=== PATIENT | female | born 1975 | race Caucasian/White ===

== ENCOUNTER → 2016-05-01 | Outpatient (CLI) | payer BC ==
[~2016-05-01] MED LIST: ACET-1257 PO; ACET325T96 PO; AMOX875T PO; CHOL2000 PO; CHOLTAB3 PO; DEXL60CA4 PO; DIPH25CA65 PO; LEVO125T72 PO; LORA-741 PO; MISCCAP80 PO; MULT-506 PO; OMEP40CA41 PO; OXYC1TAB3 PO; PANT40TA PO; PLEXUS BIO CLEANSE PO; PLEXUS DRINK PO; POLY335025 PO; PROB1CAP6 PO; SYN100 PO; ZNTT/150 PO
--- NOTE | 2016-05-01 13:28 | Discharge Instructions ---
Discharge Instructions Procedure Procedure Date: May 01, 2016. Reason for visit: Bilateral Thyroid Nodule. Discharge Discharge Date: May 01, 2016. Discharge Diagnosis: s/p thyroid nodule fna Instructions Activity Recommendations: No limitations Return to School/Work: no limitations Recommended Home Diet: No Limitations Provider Instructions: ACTIVITY RECOMMENDATIONS: * Rest today. * Resume regular activity in one day. MEDICATIONS: * May take Tylenol or Ibuprofen as needed for pain. DIET: * Resume previous diet. SPECIAL CARE INSTRUCTIONS: Call your doctor if: * Temperature above 101 degrees F. * Pain not relieved by pain medicine ordered. * Increased drainage or redness from incision. * Notify your doctor with any questions or concerns. Call your doctor or go to the nearest Emergency Department if you experience: * Increased chest pain or shortness of breath. FOLLOW UP VISIT: Follow-up with Referring Physician as scheduled. Allergies Uncoded Allergies: GENERALANESTHET (Allergy, Unknown, UNKNOWN ANESTHESIA MED, 06/03/09) Reynaldo Gaspar Recommendations: Call your doctor if: * Temperature above 101 degrees * Pain not relieved by pain medicine ordered * There is increased drainage or redness from any incision * You have any unanswered questions or concerns. Your Doctors Instructions noted above were prepared by provider Carlos Prater. Patient Signature Section: Patient Instructions Signature Page Shanika Rosales Patient (or Guardian) Signature/Date: I have read and understand the instructions given to me by my caregivers. Caregiver/RN/Doctor Signature/Date: The above-named patient and/or guardian has received patient instructions on this date. + Original Patient Signature Page (only) stays with chart. Please make copy for patient.
--- NOTE | 2016-05-01 13:49 | DIAGNOSTIC IMAGING REPORT ---
ULTRASOUND GUIDED FINE NEEDLE ASPIRATION OF BILATERAL THYROID NODULES CLINICAL HISTORY: Thyroid nodules. COMPARISON STUDY: Thyroid ultrasound April 26, 2016. PROCEDURE: Sonography of the thyroid gland demonstrated the 2.9 cm mixed cystic and solid nodule within the lower pole of the right lobe and the 1.3 cm solid nodule within the upper pole of the left lobe. These 2 nodules were targeted for biopsy. The procedure, risks and benefits were discussed with the patient. The patient agreed to the procedure and informed written consent was obtained. The procedure was performed by Dr. Prater following a timeout. Skin of the neck was prepped and draped in sterile fashion and local anesthesia was achieved with 1% lidocaine. Under direct ultrasound guidance, 2 25-gauge fine needle aspirations of the left lobe nodule were performed. The samples were deemed preliminarily adequate by pathology. 2 passes within the right lobe nodule were then performed. The samples were deemed inadequate and a third pass was then performed. This third pass was deemed adequate. The patient tolerated the procedure well and no immediate complications were evident. IMPRESSION: Ultrasound guided fine needle aspiration of bilateral thyroid nodules. Electronically signed by: Carlos Prater M.D. 05/01/2016 1:47 PM
== END | disposition home or self-care (01) ==
LOC: C.ULTR 12:26
PROVIDERS: ATTEND Nurse Practitioner
DX: E04.1 Nontoxic single thyroid nodule (principal)

== ENCOUNTER 2016-05-09 05:52 | Observation (INO) | payer BC ==
[2016-05-07 08:33] VITALS: BMI 21.0
--- NOTE | 2016-05-07 09:03 | PAT Medication Instructions ---
Service Date May 07, 2016. Current Home Medication List Acetaminophen Tab (Tylenol), 650 MG PO PRN Cholecalciferol (Vitamin D3), 1 CAP PO NOON Dexlansoprazole (Dexilant), 60 MG PO DAILY Diphenhydramine Hcl (Benadryl Allergy), 1 CAP PO HS Lorazepam (Ativan), 0.5 MG PO TID PRN for PRN Multivitamin (Multivitamin), 1 TAB PO NOON Probiotic Product (Probiotic), 2 TAB PO HS Ranitidine (Zantac), 150 MG PO HS [Plexus Bio Cleanse], 2 TAB PO QAM [Plexus Drink], 8 OZ PO QAM Medication Instructions For Your Scheduled Surgery - Hold the following medications the morning of surgery: [Plexus Bio Cleanse], 2 TAB PO QAM Multivitamin (Multivitamin), 1 TAB PO NOON Cholecalciferol (Vitamin D3), 1 CAP PO NOON [Plexus Drink], 8 OZ PO QAM - Take the following medications the morning of surgery with a sip of water OTHERWISE NOTHING TO EAT OR DRINK AFTER MIDNIGHT: Acetaminophen Tab (Tylenol), 650 MG PO PRN (may take if needed up to 4 hours prior to surgery) Dexlansoprazole (Dexilant), 60 MG PO DAILY Lorazepam (Ativan), 0.5 MG PO TID PRN for PRN - Take the following medications as scheduled the night before surgery: Acetaminophen Tab (Tylenol), 650 MG PO PRN Lorazepam (Ativan), 0.5 MG PO TID PRN for PRN Diphenhydramine Hcl (Benadryl Allergy), 1 CAP PO HS Probiotic Product (Probiotic), 2 TAB PO HS Ranitidine (Zantac), 150 MG PO HS If you have any questions please call us at [phone] (Bhumi Mckeon PA-C ) or [phone] or [phone]
[2016-05-07 11:04] LABS: PREG INTERNAL NEGATIVE QC NEG CLEAR BACKGROUND; PREG INTERNAL POSITIVE QC POS CONTROL LINE
[2016-05-07 11:16] LABS: PARTIAL THROMBOPLASTIN RATIO 1.1; PROTHROMBIN TIME (PATIENT) 10.8 SECONDS (9.0-12.0)
[2016-05-07 11:39] LABS: THYROID STIMULATING HORMONE 1.22 uIu/ml (0.300-4.500)
[2016-05-09] VITALS (9 sets, daily range): BP systolic 101–119; BP diastolic 64–80; PULSE 70–84; TEMP 36.5–37; O2SAT 97–100; Ht 172.7 cm; Wt 63.5 kg
[~2016-05-09] VITALS: Ht 172.7 cm; Wt 63.5 kg
[~2016-05-09 05:52] MED LIST changes: -ACET-1257 PO; +ACETAMINOPHEN 1000 MG/100 ML IV IV ONE; -AMOX875T PO; -CHOLTAB3 PO; -LEVO125T72 PO; -OMEP40CA41 PO; -OXYC1TAB3 PO; -PANT40TA PO; -POLY335025 PO; -PROB1CAP6 PO; -SYN100 PO
[2016-05-09] MEDS ORDERED: CEFAZOLIN 2000 MG/60 ML D5W IV SCH (06:00)
[2016-05-09] MEDS ORDERED: LACTATED RINGER'S 1000ML 1,000 ML IV SCH (06:00)
[2016-05-09] MEDS ORDERED: GLYCOPYRROLATE INJ 0.2 MG/ML VIAL ONE (06:06)
[2016-05-09] MEDS ORDERED: PHENYLEPHRINE HCL INJ 10 MG/ML VIAL ONE (06:06)
[2016-05-09] MEDS ORDERED: SUCCINYLCHOLINE CHLORIDE 20 MG/ML 10 ML VIAL IV ONE (06:06)
[2016-05-09] MEDS ORDERED: DEXAMETHASONE SOD INJ 4 MG/ML VIAL ONE (06:06)
[2016-05-09] MEDS ORDERED: ONDANSETRON INJ 2 MG/ML 2 ML VIAL ONE (06:06)
[2016-05-09] MEDS ORDERED: ROCURONIUM BROMIDE 10 MG/ML 5 ML VIAL ONE (06:06)
[2016-05-09] MEDS ORDERED: NEOSTIGMINE METHYLSULFATE 5 MG/5 ML SYR ONE (06:06)
[2016-05-09] MEDS ORDERED: PROPOFOL IV EMULSION 10 MG/ML 20 ML VIAL IV ONE (06:06)
[2016-05-09] MEDS ORDERED: FENTANYL CITRATE INJ 50 MCG/1 ML 2 ML VIAL ONE ×2 (06:06→07:52)
[2016-05-09] MEDS ORDERED: EpHEDrine SULFATE INJ 50 MG/ML AMP ONE (06:06)
[2016-05-09] MEDS ORDERED: LIDOCAINE HCL 2% 2 ML VIAL (20MG/ML) ONE (06:06)
[2016-05-09] MEDS ORDERED: MIDAZOLAM HCL 1 MG/ML 2ML VIAL ONE (06:06)
--- NOTE | 2016-05-09 06:39 | History & Physical Bridge - [place] ---
H&P Re-Evaluation Bridge Note: I have examined the patient, reviewed the History & Physical and in the interval since the performance of the History & Physical I have noted the following changes of clinical significance: No changes noted
[2016-05-09] MEDS ORDERED: LIDOCAINE 1% W/EPI 1:100,000 INJ ONE (07:39)
[2016-05-09] MEDS ORDERED: FENTANYL CITRATE INJ 50 MCG/1 ML 2 ML VIAL IV PRN (08:00)
[2016-05-09] MEDS ORDERED: ONDANSETRON INJ 2 MG/ML 2 ML VIAL IV PRN ×2 (08:00→09:45)
[2016-05-09] MEDS ORDERED: EpHEDrine SULFATE INJ 50 MG/ML AMP IV PRN (08:00)
[2016-05-09] MEDS ORDERED: HYDROmorphone INJ 1 MG/ML SYR IV PRN (08:00)
[2016-05-09] MEDS ORDERED: ATROPINE SULFATE 0.1 MG/ML 5ML SYR IV PRN (08:00)
[2016-05-09] MEDS ORDERED: PROMETHAZINE HCL INJ 6.25 MG in SODIUM CHLORIDE 0.9% 50ML 50 ML IV PRN (08:00)
[2016-05-09] MEDS ORDERED: BACITRACIN OINT 15 GM TUBE EXT ONE (09:10)
[2016-05-09] MEDS ORDERED: THROMBIN 5,000 UNITS (RECOMBINANT) TOP ONE (09:10)
--- NOTE | 2016-05-09 09:28 | [facility] Operative Report ---
Operative Report Operative Date May 09, 2016. Pre-Operative Diagnosis 1. Papillary Thyroid Carcinoma 2. Neck Pain Post-Operative Diagnosis SAME ABOVE Procedure(s) Performed TOTAL THYROIDECTOMY Surgeon Dr. Ra Osborne Kier Operator Surgeon(s) Shabana Don PA-C Estimated Blood Loss 5ml Findings 1. ~2CM FIRM LEFT SUPERIOR POLE THYROID NODULE AND ~2.5CM SOFT RIGHT THYROID NODULE Specimens A: Total Thyroid. Double stitch bowen the Right Superior Pole. Single stitch will janny the Left Superior Pole. I attest to the content of the Intraoperative Record and any orders documented therein. Any exceptions are noted below.
--- NOTE | 2016-05-09 09:52 | OPERATIVE REPORT ---
DATE OF OPERATION: 05/09/2016 PREOPERATIVE DIAGNOSIS: Papillary thyroid carcinoma. POSTOPERATIVE DIAGNOSIS: Same. PROCEDURE: Total thyroidectomy. SURGEON: Dr. Osborne. TIN ASSORTER: Shabana Don. ESTIMATED BLOOD LOSS: 5 mL. FINDINGS: 1. Firm, approximately 2 cm left mid to superior pole thyroid nodule. 2. Softer, approximately 2.5 cm right thyroid nodule. SPECIMENS: Total thyroidectomy for permanent pathological assessment. DRAINS: None. COMPLICATIONS: None. INDICATIONS FOR THE PROCEDURE: The patient is a very pleasant 40-year-old female who is referred by her primary care physician for evaluation of a fine needle aspiration biopsy showing papillary thyroid carcinoma. Ultrasound showed a right greater than left, multinodular goiter and an FNA of the right nodule was benign, but the left nodule appeared to have findings suspicious for papillary thyroid carcinoma. The patient presents for the above-mentioned procedure on an inpatient elective basis. DETAILS OF PROCEDURE: After informed consent had been obtained from the patient, the patient was wheeled to the operating room and placed on the operating table in the supine position. Monitors were placed after induction of general endotracheal anesthesia with a size 6 nerve integrity monitored endotracheal tube. The patient's head and neck were gently extended and a marking pen was used to outline the planned 5 cm incision in the natural skin crease 2 fingerbreadths above the level of the clavicles. 3 mL of 1% lidocaine with 1:100,000 epinephrine was used to inject the skin and subcutaneous tissues overlying the planned incision site. The skin of the neck and chest were then prepped and draped in the usual sterile fashion. A #15 scalpel was then used to make the incision through the skin, subcutaneous tissue, and platysma. Subplatysmal flaps were raised superiorly to the level of the thyroid notch and inferiorly to the level of clavicles. The median rhaphe of the strap muscles was divided using Bovie electrocautery. The strap muscles were retracted laterally and the right thyroid lobe was first addressed. The middle thyroid vein, as well as superior and inferior thyroidal vascular pedicles were divided adjacent to the thyroid capsule using the Harmonic scalpel. Dissection was carried laterally to medially with care to identify and preserve the right recurrent laryngeal nerve, as well as superior and inferior parathyroid candidates. The right recurrent laryngeal nerve stimulated and was identified and preserved during the procedure. The left side was then addressed in a similar fashion. The thyroid gland was then from the trachea at Enrique's ligament using the Harmonic scalpel. Orienting sutures were placed on the total thyroidectomy specimen, which was sent off for permanent pathological assessment. Hemostasis was confirmed with a Valsalva maneuver. Small pieces of Surgicel followed by topical spray thrombin were placed in the bilateral tracheoesophageal grooves. The strap muscles were then reapproximated in the midline and using a simple running interlocked 3-0 Vicryl suture. The platysma was then closed with 4-0 Monocryl suture. The incision was closed with a simple running subcuticular 5-0 Monocryl suture. The incision was cleansed and dried. Dermabond was applied to the incision. This marked the end of the case. The patient tolerated the procedure well and there were no apparent complications. The patient was extubated and transferred to recovery room in stable condition. I attest to the content of the Intraoperative Record and any orders documented therein. Any exceptio ns are noted below.
[2016-05-09] MEDS ORDERED: LORAZEPAM 0.5 MG TAB PO PRN (10:00)
--- NOTE | 2016-05-09 10:50 | Anesthesiology Progress Note ---
Anesthesia Post Op Note Date & Time May 09, 2016 at 10:50 Vital Signs Pain Intensity: 4 Vital Signs Past 12 Hours Date Time Temp Pulse Resp B/P Pulse Ox O2 Delivery O2 Flow Rate FiO2 05/09/16 10:22 37.0 05/09/16 10:18 74 16 125/82 100 05/09/16 10:18 74 16 05/09/16 10:13 76 16 05/09/16 10:13 76 16 119/78 100 05/09/16 10:08 83 17 126/79 100 05/09/16 10:08 82 17 05/09/16 10:07 81 16 100 05/09/16 10:07 81 16 05/09/16 10:03 119/77 05/09/16 10:02 82 18 05/09/16 10:02 80 18 100 05/09/16 09:58 121/81 05/09/16 09:57 92 16 100 05/09/16 09:57 94 16 05/09/16 09:53 118/78 05/09/16 09:52 73 24 100 05/09/16 09:52 74 24 05/09/16 09:51 72 16 05/09/16 09:51 72 16 100 05/09/16 09:48 123/81 05/09/16 09:46 82 16 100 05/09/16 09:46 82 16 05/09/16 09:43 122/81 05/09/16 09:41 78 12 05/09/16 09:41 79 12 100 05/09/16 09:38 113/79 05/09/16 09:36 36.7 93 12 130/77 100 Mask 10 05/09/16 09:36 78 15 100 05/09/16 09:36 78 15 05/09/16 06:19 36.8 78 18 110/75 100 Room Air Notes Mental Status: alert / awake / arousable, participated in evaluation Pt Amnestic to Procedure: Yes Nausea / Vomiting: adequately controlled Pain: adequately controlled Airway Patency, RR, SpO2: stable & adequate BP & HR: stable & adequate Hydration State: stable & adequate Anesthetic Complications: no major complications apparent
[2016-05-09] MEDS: LACTATED RINGER'S 1000ML 1,000 ML IV SCH ×2 (11:40→20:39)
[2016-05-09] MEDS: CHOLECALCIFEROL 1000 INTER.UNIT TAB PO SCH (12:00)
[2016-05-09] MEDS: MULTIVITAMIN TAB PO SCH (12:00)
[2016-05-09] MEDS: PANTOprazole SOD 40 MG TAB PO SCH (12:00)
[2016-05-09] MEDS ORDERED: IV FLUIDS COMPLETED PRN (12:00)
[2016-05-09] MEDS: HYDROCODONE/ACETAMOPHEN 5/325MG TAB PO PRN ×3 (12:23→21:09)
[2016-05-09 15:35] LABS: CALCIUM 8.6 mg/dl (8.5-10.1); PHOSPHORUS 2.6 mg/dl (2.5-4.9)
[2016-05-09] MEDS ORDERED: RANITIDINE HCL 150 MG TAB PO SCH (21:00)
[2016-05-09 21:31] LABS: CALCIUM 8.5 mg/dl (8.5-10.1); PHOSPHORUS 2.5 mg/dl (2.5-4.9)
[2016-05-10 03:09] VITALS: BP 96/61; PULSE 80; TEMP 36.8; O2SAT 99
[2016-05-10 03:21] LABS: CALCIUM 7.7 mg/dl (8.5-10.1)
[2016-05-10 03:27] LABS: MAGNESIUM 1.9 mg/dl (1.8-2.4)
[2016-05-10] MEDS ORDERED: CALCIUM GLUCONATE 10% 1,000 MG in SODIUM CHLORIDE 0.9% 50ML 50 ML IV STA (04:20)
[2016-05-10] MEDS ORDERED: NURSING VERBAL MED ORDER ONE (05:45)
[2016-05-10] MEDS ORDERED: LEVOTHYROXINE 100 MCG TAB PO SCH (06:00)
[2016-05-10 06:52] VITALS: BP 106/66; PULSE 73; TEMP 36.9; O2SAT 98
[2016-05-10 07:38] VITALS: O2SAT 100
--- NOTE | 2016-05-10 07:42 | Anesthesiology Progress Note ---
Anesthesia Post Op Note Date & Time May 10, 2016 at 07:41 Vital Signs Pain Intensity: 4.0 Vital Signs Past 12 Hours Date Time Temp Pulse Resp B/P Pulse Ox O2 Delivery O2 Flow Rate FiO2 05/10/16 07:38 100 Room Air 05/10/16 06:52 36.9 73 18 106/66 98 Room Air 05/10/16 03:09 36.8 80 18 96/61 99 Room Air 05/09/16 23:10 Room Air 05/09/16 22:57 36.9 82 16 101/64 97 Room Air Notes Mental Status: alert / awake / arousable, participated in evaluation Pt Amnestic to Procedure: Yes Nausea / Vomiting: adequately controlled Pain: adequately controlled Airway Patency, RR, SpO2: stable & adequate BP & HR: stable & adequate Hydration State: stable & adequate Anesthetic Complications: no major complications apparent
[2016-05-10] MEDS: PANTOprazole SOD 40 MG TAB PO SCH (08:34)
[2016-05-10] MEDS: CHOLECALCIFEROL 1000 INTER.UNIT TAB PO SCH (08:34)
[2016-05-10] MEDS: MULTIVITAMIN TAB PO SCH (08:34)
[2016-05-10] MEDS: HYDROCODONE/ACETAMOPHEN 5/325MG TAB PO PRN (08:35)
[2016-05-10] MEDS ORDERED: CALCIUM 600MG + VIT D 400 IU TAB PO SCH (09:00)
[2016-05-10 09:47] LABS: PHOSPHORUS 3.9 mg/dl (2.5-4.9)
--- NOTE | 2016-05-10 09:50 | Discharge Instructions ---
Discharge Instructions Admission Reason for Admission: Papillary Thyroid Carcinoma Discharge Discharge Diagnosis / Problem: SAME AND POSTOPERATIVE HYPOPARATHYROIDISM Discharge Goals Goal(s): Improve function Activity Recommendations Activity Limitations: as noted below 1. NO STRENUOUS ACTIVITY FOR 2WEEKS 2. KEEP INCISION DRY FOR 1 WEEK 3. NO DRIVING WHILE ON NORCO . Current Hospital Diet Patient's current hospital diet: Regular Diet, Gluten Free Diet, Low Lactose Diet Discharge Diet Recommended Diet: Regular Diet Procedures Procedures Performed: Bilateral Total Thyroidectomy Pending Studies Studies pending at discharge: no Medical Emergencies . Who to Call and When: Medical Emergencies: If at any time you feel your situation is an emergency, please call 911 immediately. . Non-Emergent Contact Non-Emergency issues call your: Surgeon . . "Provider Documentation" section prepared by Ra Osborne. VTE Core Measure Inpt VTE Proph given/why not?: SCD's
[2016-05-10 09:59] VITALS: BP 106/66; PULSE 73; TEMP 36.9; O2SAT 100
--- NOTE | 2016-05-10 10:05 | DISCHARGE SUMMARY ---
DATE OF DISCHARGE: 05/10/2016. HOSPITAL COURSE: The patient is a 40-year-old female with fine needle aspiration biopsy of a left thyroid nodule highly suspicious for papillary thyroid carcinoma. She underwent total thyroidectomy on 05/09/2016 and initially her postoperative calciums were within normal limits. However on 05/10/2016 her calcium dropped to 7.7 although she was asymptomatic. She was given 1 gram of IV calcium as well as oral calcium supplementation. Her calcium did increase to 8.0 and she still is asymptomatic. Her phosphorus plateaued at 3.9. she was discharged to home in satisfactory condition with the addition of Synthroid 100 mcg daily as well as a Os-Nain D taper consisting of 2 pills 4 times a day for 1 week, followed by 2 pills 3 times daily for 1 week, followed by 2 pills twice for 1 week, followed by 1 pill daily for 1 week. She has a postoperative appointment next Saturday and at that time we will order a calcium level. She is to call our office if she develops any numbness or tingling around her lips, fingers, or toes or develops muscle spasms or cramps.
[2016-09-03] MEDS ORDERED: OMEP40CA41 PO (13:17)
[2016-09-03] MEDS ORDERED: SYN100 PO (13:17)
== END 2016-05-10 10:51 | disposition home or self-care (01) ==
LOC: ENRESERVTM → ENRESERVDT → C.ACU 05:52 → C.3E 09:53
DX: C73 Malignant neoplasm of thyroid gland (principal); M54.2 Cervicalgia; K21.9 Gastro-esophageal reflux disease without esophagitis; E55.9 Vitamin D deficiency, unspecified; Z79.899 Other long term (current) drug therapy; Z83.49 Family history of other endocrine, nutritional and metabolic diseases; Z83.79 Family history of other diseases of the digestive system; Z82.49 Family history of ischemic heart disease and other diseases of the circulatory system; Z80.3 Family history of malignant neoplasm of breast; Z80.0 Family history of malignant neoplasm of digestive organs

== ENCOUNTER → 2016-05-15 | Outpatient (CLI) | payer BC ==
[~2016-05-15] MED LIST changes: -ACETAMINOPHEN 1000 MG/100 ML IV IV ONE; +OMEP40CA41 PO; +SYN100 PO
== END | disposition home or self-care (01) ==
LOC: C.LABBFT 09:12
PROVIDERS: ATTEND Surgery
DX: C73 Malignant neoplasm of thyroid gland (principal)

== ENCOUNTER → 2016-06-06 | Outpatient (CLI) | payer BC ==
[2016-06-06 12:40] LABS: THYROID STIMULATING HORMONE 0.243 uIu/ml (0.300-4.500)
== END | disposition home or self-care (01) ==
LOC: C.LAB 11:18
PROVIDERS: ATTEND Internal Medicine Endocrinology, Diabetes & Metabolism
DX: C73 Malignant neoplasm of thyroid gland (principal)

== ENCOUNTER → 2016-07-26 | Outpatient (CLI) | payer BC ==
[~2016-07-26] MED LIST changes: +LEVO125T72 PO; +PANT40TA PO
== END | disposition home or self-care (01) ==
LOC: C.LAB1850 15:18
PROVIDERS: ATTEND Obstetrics & Gynecology
DX: Z71.1 Person with feared health complaint in whom no diagnosis is made (principal)

== ENCOUNTER → 2016-07-26 | Outpatient (CLI) | payer BC ==
[2016-07-30 14:52] LABS: CHLAMYDIA TRACH RNA*** NOT DETECTED (NOT DETECTED); GC (NEIS GONORRHOEAE)RNA** NOT DETECTED (NOT DETECTED)
== END | disposition home or self-care (01) ==
LOC: C.LABSPEC 16:29
PROVIDERS: ATTEND Obstetrics & Gynecology
DX: Z71.1 Person with feared health complaint in whom no diagnosis is made (principal)

== ENCOUNTER → 2016-07-26 | Outpatient (CLI) | payer BC | END | disposition home or self-care (01) | LOC: C.PAPS 08:32 | PROVIDERS: ATTEND Obstetrics & Gynecology | DX: Z01.419 Encounter for gynecological examination (general) (routine) without abnormal findings (principal) ==

== ENCOUNTER → 2016-08-13 | Outpatient (CLI) | payer BC ==
[2016-08-14 03:39] LABS: THYROGLOBULIN <0.1 NG/ML (2.8-40.9)
== END | disposition home or self-care (01) ==
LOC: C.LAB1850 08:38
PROVIDERS: ATTEND Internal Medicine Endocrinology, Diabetes & Metabolism
DX: C73 Malignant neoplasm of thyroid gland (principal)

== ENCOUNTER → 2016-09-03 | Outpatient (CLI) | payer BC ==
[2016-09-03 12:18] LABS: HEMATOCRIT 36.6 % (37-47); MEAN CELL VOLUME 95.1 fL (80-100); MEAN CORPUSCULAR HEMOGLOBIN 31.9 pg (25-34); MEAN CORPUSCULAR HGB CONC 33.6 g/dl (32-36); MEAN PLATELET VOLUME 10.4 fL (7.4-10.4); PLATELET COUNT 179 K/uL (130-400); RED BLOOD COUNT 3.85 M/uL (4.2-5.4); WHITE BLOOD COUNT 5.14 K/uL (4.8-10.8)
[2016-09-03 13:05] LABS: FERRITIN 44.8 ng/ml (8.0-388.0); MAGNESIUM 2.2 mg/dl (1.8-2.4); THYROID STIMULATING HORMONE 0.478 uIu/ml (0.300-4.500)
--- NOTE | 2016-09-07 12:17 | CODING QUERY MEDICAL NECESSITY ---
CQSUPPORTING DIAGNOSIS NEEDED A supporting diagnosis is required for the test/procedure performed on this patient in order for us to be reimbursed by the patient's insurance. Please provide a supporting diagnosis for the following test/procedure listed below next to the test name along with your signature. *If there is no additional diagnosis for this patient that would support the following test/procedure please document that below next to the test/procedure. Test(s)/Procedure(s) that require a supporting diagnosis: DOS 09/03/16 VITAMIN D TEST Provider Signature: Date: Thank you Avril Trinh Health Information Management Once completed, please kindly fax back to [phone] For questions please call [phone]
== END | disposition home or self-care (01) ==
LOC: C.LAB1850 10:46
PROVIDERS: ATTEND Internal Medicine Endocrinology, Diabetes & Metabolism
DX: C73 Malignant neoplasm of thyroid gland (principal); K21.9 Gastro-esophageal reflux disease without esophagitis; R19.7 Diarrhea, unspecified; R25.2 Cramp and spasm; E55.9 Vitamin D deficiency, unspecified

== ENCOUNTER → 2016-09-12 | Day surgery (SDC) | payer BC, OTHER ==
[2016-09-03 13:17] VITALS: Ht 170.2 cm; Wt 63.6 kg
[~2016-09-12] VITALS: Ht 170.2 cm; Wt 63.6 kg
[~2016-09-12] MED LIST changes: -DEXL60CA4 PO; +LIDOCAINE HCL 2% 2 ML VIAL (20MG/ML) ONE; +PROPOFOL IV EMULSION 10 MG/ML 20 ML VIAL IV ONE
[2016-09-12 13:03] VITALS: TEMP 36.9
--- NOTE | 2016-09-12 13:31 | Endo History and Physical ---
History & Physical Date of Service: September 12, 2016. Chief Complaint: History of polyps Referring Physician: Dr. Bernard Garvey History of Present Illness 41 yo CF who presents for colonoscopy secondary to history of colon polyps. Past Surgical History Hx Cardiac Surgery: No Hx Internal Defibrillator: No Hx Pacemaker: No Hx Abdominal Surgery: Yes (LAPAROSCOPY) Hx of Implantable Prosthesis: No Hx Post-Op Nausea and Vomiting: No Hx Cancer Surgery: Yes (TOTAL THYROIDECTOMY) Hx Thoracic Surgery: No Hx Orthopedic: No Hx Urinary Tract Surgery: No Family History Colon CA, Polyp Social History Smoking Status: Never Smoker Hx Substance Use: No Hx Alcohol Use: Yes (OCCASIONALLY) Allergies Coded Allergies: Gluten (Verified Allergy, Unknown, INTOLERANCE TO WHEAT, 09/03/16) Milk (Verified Allergy, Unknown, COWS MILK-GI UPSET, 09/03/16) NO KNOWN DRUG ALLERGIES (Verified Allergy, Unknown, ., 09/03/16) Current Medications Reported Home Medications Medications Dose Route/Sig Max Daily Dose Days Date Category Dose Instructions Prilosec (Omeprazole) 40 Mg Cap 40 Mg PO BID 09/03/16 Reported Synthroid (Levothyroxine Sodium) 100 Mcg Tab 1 Tab PO QAM 09/03/16 Reported Tylenol (Acetaminophen) 325 Mg Tab 650 Mg PO PRN 05/07/16 Reported Ativan (Lorazepam) 0.5 Mg Tab 0.5 Mg PO TID PRN 05/07/16 Reported Vitamin D3 (Cholecalciferol) 2,000 Unit Cap 1 Cap PO NOON 90 05/07/16 Reported [Plexus Bio Cleanse] 2 Tab PO QAM 05/07/16 Reported [Plexus Drink] 8 Oz PO QAM 05/07/16 Reported VITAMIN SUPPLEMENT DRINK Probiotic (Probiotic Product) 1 Cap Cap 2 Tab PO HS 05/07/16 Reported Benadryl Allergy (Diphenhydramine Hcl) 25 Mg Cap 1 Cap PO HS 30 05/07/16 Reported Zantac (Ranitidine HCl) 150 Mg Tab 150 Mg PO HS 09/10/13 Reported Multivitamin (Multivitamins) Tab 1 Tab PO NOON 08/19/09 Reported Vital Signs Weight (Kilograms): 63.64 Height (Feet): 5 Height (Inches): 7 Date Time Temp Pulse Resp B/P Pulse Ox O2 Delivery O2 Flow Rate FiO2 09/12/16 13:03 36.9 77 16 119/72 100 Room Air Physical Exam General Appearance: WD/WN, no apparent distress Respiratory/Chest: Auscultation: breath sounds normal Cardiovascular: Heart Auscultation: RRR Abdomen: Bowel Sounds: normal Inspection & Palpation: soft, non-distended, no tenderness, guarding & rebound Assessment and Plan Assessment: 41 yo CF who presents for colonoscopy secondary to history of colon polyps. Plan: Proceed with colonoscopy.
--- NOTE | 2016-09-12 14:00 | Discharge Instructions ---
Endoscopy Patient Instructions Date / Procedure(s) Performed September 12, 2016. Colonoscopy Allergy Information Coded Allergies: Gluten (Verified Allergy, Unknown, INTOLERANCE TO WHEAT, 09/03/16) Milk (Verified Allergy, Unknown, COWS MILK-GI UPSET, 09/03/16) NO KNOWN DRUG ALLERGIES (Verified Allergy, Unknown, ., 09/03/16) Discharge Date / Findings September 12, 2016. Internal hemorrhoids Medication Instructions OK to resume all medications today as prescribed Reported Home Medications Medications Dose Route/Sig Max Daily Dose Days Date Category Dose Instructions Prilosec (Omeprazole) 40 Mg Cap 40 Mg PO BID 09/03/16 Reported Synthroid (Levothyroxine Sodium) 100 Mcg Tab 1 Tab PO QAM 09/03/16 Reported Tylenol (Acetaminophen) 325 Mg Tab 650 Mg PO PRN 05/07/16 Reported Ativan (Lorazepam) 0.5 Mg Tab 0.5 Mg PO TID PRN 05/07/16 Reported Vitamin D3 (Cholecalciferol) 2,000 Unit Cap 1 Cap PO NOON 90 05/07/16 Reported [Plexus Bio Cleanse] 2 Tab PO QAM 05/07/16 Reported [Plexus Drink] 8 Oz PO QAM 05/07/16 Reported VITAMIN SUPPLEMENT DRINK Probiotic (Probiotic Product) 1 Cap Cap 2 Tab PO HS 05/07/16 Reported Benadryl Allergy (Diphenhydramine Hcl) 25 Mg Cap 1 Cap PO HS 30 05/07/16 Reported Zantac (Ranitidine HCl) 150 Mg Tab 150 Mg PO HS 09/10/13 Reported Multivitamin (Multivitamins) Tab 1 Tab PO NOON 08/19/09 Reported Provider Instructions Activity Restrictions - No exercising or heavy lifting for 24 hours. - Do not drink alcohol the day of the procedure. - Do not drive a car or operate machinery until the day after the procedure. - Do not make any important decisions or sign important papers in 24 hours after the procedure. Following Day: - Return to full activity which may include returning to work/school. Diet Start your diet with liquids and light foods (jello, soup, juice, toast). Then eat your usual diet if not nauseated. Treatment For Common After Affects For mild abdominal pain, bloating, or excessive gas: - Rest - Eat lightly - Lie on right side Follow-Up Information Follow-up with Dr. Bernard Garvey as scheduled Anesthesia Information What You Should Know You have had a procedure that required some medicine to reduce anxiety and discomfort. This treatment is called moderate sedation. After receiving the treatment, you may be sleepy, but you will be able to breathe on your own. The effects of the treatment may last for several hours. Follow these instructions along with Activity/Diet recommendations noted above: * Do NOT do anything where dizziness or clumsiness would be dangerous. * Rest quietly at home today, then you can be up and about tomorrow. * Have a responsible person stay with you the rest of today. * You may have had an I.V. today. If so, you may take the dressing off later today. Recommendations Call your doctor if: * Trouble breathing * Continuous vomiting for more than 24 hours * Temperature above 101 degrees * Severe abdominal pain or bloating * Pain not relieved by pain medicine ordered * There is increased drainage or redness from any incision * A large amount of rectal bleeding greater than 2-3 tablespoons. (If you had a polyp/s removed or have hemorrhoids, a small amount of blood - from the rectum is to be expected.) * You have any unanswered questions or concerns. IN THE EVENT OF A SERIOUS EMERGENCY, GO TO THE NEAREST EMERGENCY ROOM Your discharge instructions were prepared by provider Oscar Castro. Patient Instructions Signature Page Shanika Rosales Patient (or Guardian) Signature/Date: I have read and understand the instructions given to me by my caregivers. Caregiver/RN/Doctor Signature/Date: The above-named patient and/or guardian has received patient instructions on this date. + Original Patient Signature Page (only) stays with chart. Please make copy for patient.
--- NOTE | 2016-09-12 14:02 | GI REPORT ---
Procedure Date: 09/12/2016 1:42 PM Procedure: Colonoscopy Indications: High risk colon cancer surveillance: Personal history of colonic polyps Medicines: Monitored Anesthesia Care Complications: No immediate complications. Estimated Blood Loss: Estimated blood loss: none. Procedure: Pre-Anesthesia Assessment: - Prior to the procedure, a History and Physical was performed, and patient medications and allergies were reviewed. The patient's tolerance of previous anesthesia was also reviewed. The risks and benefits of the procedure and the sedation options and risks were discussed with the patient. All questions were answered, and informed consent was obtained. Prior Anticoagulants: The patient has taken no previous anticoagulant or antiplatelet agents. ASA Grade Assessment: II - A patient with mild systemic disease. After reviewing the risks and benefits, the patient was deemed in satisfactory condition to undergo the procedure. After I obtained informed consent, the scope was passed under direct vision. Throughout the procedure, the patient's blood pressure, pulse, and oxygen saturations were monitored continuously. The Scope was introduced through the anus and advanced to the terminal ileum. The colonoscopy was performed without difficulty. The patient tolerated the procedure well. The quality of the bowel preparation was good. The terminal ileum, ileocecal valve, appendiceal orifice, and rectum were photographed. Findings: Non-bleeding internal hemorrhoids were found during retroflexion. The hemorrhoids were small. The exam was otherwise without abnormality. Impression: - Non-bleeding internal hemorrhoids. - The examination was otherwise normal. - No specimens collected. Recommendation: - Resume previous diet. - Continue present medications. - Repeat colonoscopy in 5 years for surveillance. - Return to primary care physician as previously scheduled. Oscar Castro, 09/12/2016 2:02:35 PM This report has been signed electronically. Note Initiated On: 09/12/2016 1:42 PM I attest to the content of the Intraoperative Record and orders documented therein, exceptions below
--- NOTE | 2016-09-12 14:16 | Anesthesiology Progress Note ---
Anesthesia Post Op Note Date & Time September 12, 2016 at 14:16 Vital Signs Pain Intensity: 3 Vital Signs Past 12 Hours Date Time Temp Pulse Resp B/P Pulse Ox O2 Delivery O2 Flow Rate FiO2 09/12/16 14:01 80 16 96/60 99 Room Air 09/12/16 13:03 36.9 77 16 119/72 100 Room Air Notes Mental Status: alert / awake / arousable, participated in evaluation Pt Amnestic to Procedure: Yes Nausea / Vomiting: adequately controlled Pain: adequately controlled Airway Patency, RR, SpO2: stable & adequate BP & HR: stable & adequate Hydration State: stable & adequate Anesthetic Complications: no major complications apparent
[2016-09-12 14:31] VITALS: BP 102/72; PULSE 68; O2SAT 100
== END | disposition home or self-care (01) ==
LOC: C.GI 12:28
PROVIDERS: ATTEND Internal Medicine
DX: Z12.11 Encounter for screening for malignant neoplasm of colon (principal); Z86.010 Personal history of colon polyps; K64.8 Other hemorrhoids; E89.0 Postprocedural hypothyroidism; Z83.71 Family history of colonic polyps; K21.9 Gastro-esophageal reflux disease without esophagitis

== ENCOUNTER → 2016-10-03 | Outpatient (CLI) | payer BC ==
[~2016-10-03] MED LIST changes: -LIDOCAINE HCL 2% 2 ML VIAL (20MG/ML) ONE; -PROPOFOL IV EMULSION 10 MG/ML 20 ML VIAL IV ONE
[2016-10-03 17:48] LABS: THYROID STIMULATING HORMONE 0.832 uIu/ml (0.300-4.500)
== END | disposition home or self-care (01) ==
LOC: C.LABBFT 11:34
PROVIDERS: ATTEND Internal Medicine Endocrinology, Diabetes & Metabolism
DX: C73 Malignant neoplasm of thyroid gland (principal)

== ENCOUNTER → 2016-10-12 | Outpatient (CLI) | payer BC ==
--- NOTE | 2016-10-12 16:38 | MAMMOGRAPHY REPORT ---
BILATERAL DIGITAL SCREENING MAMMOGRAM TOMOSYNTHESIS WITH CAD: 10/12/2016 CLINICAL HISTORY: Routine screening. Patient has no complaints. TECHNIQUE: Breast tomosynthesis in addition to standard 2D mammography was performed. Current study was also evaluated with a Computer Aided Detection (CAD) system. COMPARISON: Comparison is made to exams dated: 08/23/2015 mammogram and 08/18/2014 mammogram - [facility]. BREAST COMPOSITION: The tissue of both breasts is extremely dense, which lowers the sensitivity of m ammography. FINDINGS: No suspicious masses, calcifications, or areas of architectural distortion are noted in ei ther breast. There has been no significant interval change compared to prior exams. IMPRESSION: ACR BI-RADS CATEGORY 1: NEGATIVE There is no mammographic evidence of malignancy. A 1 year screening mammogram is recommended. The pa tient will receive written notification of the results. Approximately 10% of breast cancers are not detected with mammography. A negative mammographic report should not delay biopsy if a clinically suggestive mass is present. Bren Seth M.D. ah/:10/12/2016 15:57:41 Nursing Program Coordinator: Beena BURGESS(Raul)(Mary)(BD), [facility] letter sent: Normal 1/2 BI-RADS Code: ACR BI-RADS Category 1: Negative
== END | disposition home or self-care (01) ==
LOC: C.MAMM 15:21
PROVIDERS: ATTEND Obstetrics & Gynecology
DX: Z12.31 Encounter for screening mammogram for malignant neoplasm of breast (principal)

== ENCOUNTER → 2016-11-16 | Outpatient (CLI) | payer BC ==
[~2016-11-16] MED LIST changes: -LEVO125T72 PO; -PANT40TA PO
[2016-11-16 18:48] LABS: THYROID STIMULATING HORMONE 0.208 uIu/ml (0.300-4.500)
== END | disposition home or self-care (01) ==
LOC: C.LAB 17:11
PROVIDERS: ATTEND Internal Medicine Endocrinology, Diabetes & Metabolism
DX: C73 Malignant neoplasm of thyroid gland (principal)

== ENCOUNTER → 2017-02-05 | Outpatient (CLI) | payer BC ==
[2017-02-05 12:49] LABS: CHOLESTEROL/HDL RATIO 2.1; THYROID STIMULATING HORMONE 0.373 uIu/ml (0.300-4.500)
[2017-02-06 15:13] LABS: THYROGLOBULIN <0.1 NG/ML (2.8-40.9)
== END | disposition home or self-care (01) ==
LOC: C.LABBFT 07:46
PROVIDERS: ATTEND Internal Medicine Endocrinology, Diabetes & Metabolism
DX: C73 Malignant neoplasm of thyroid gland (principal); R87.810 Cervical high risk human papillomavirus (HPV) DNA test positive; Z13.6 Encounter for screening for cardiovascular disorders; D22.9 Melanocytic nevi, unspecified; F41.9 Anxiety disorder, unspecified

== ENCOUNTER → 2017-02-25 | Day surgery (SDC) | payer BC ==
[2017-02-20 15:11] VITALS: Ht 170.2 cm; Wt 63.6 kg
[~2017-02-25] VITALS: Ht 170.2 cm; Wt 63.6 kg
[~2017-02-25] MED LIST changes: +ATROPINE SULFATE 0.1 MG/ML 5ML SYR IV PRN; +EpHEDrine SULFATE INJ 50 MG/ML AMP IV PRN; +FENTANYL CITRATE INJ 50 MCG/1 ML 2 ML VIAL ONE; +LEVO125T72 PO; +LIDOCAINE HCL 2% 2 ML VIAL (20MG/ML) ONE; +PANT40TA PO; -PLEXUS BIO CLEANSE PO; -PLEXUS DRINK PO; +PROPOFOL IV EMULSION 10 MG/ML 20 ML VIAL IV ONE; +SODIUM CHLORIDE 0.9% 500ML 500 ML IV ONE; -SYN100 PO
--- NOTE | 2017-02-25 08:43 | Endo History and Physical ---
History & Physical Date of Service: Feb 25, 2017. Chief Complaint: GERD Referring Physician: Dr. Garvey History of Present Illness 41 yo CF who presents for EGD secondary to GERD. Past Surgical History Hx Cardiac Surgery: No Hx Internal Defibrillator: No Hx Pacemaker: No Hx Abdominal Surgery: Yes (LAPAROSCOPY) Hx of Implantable Prosthesis: No Hx Post-Op Nausea and Vomiting: No Hx Cancer Surgery: Yes (THYROIDECTOMY) Hx Thoracic Surgery: No Hx Orthopedic: No Hx Urinary Tract Surgery: No Family History Colon CA, Polyp Social History Smoking Status: Never Smoker Hx Substance Use: No Hx Alcohol Use: Yes (OCCASIONAL) Allergies Coded Allergies: Gluten (Verified Allergy, Unknown, INTOLERANCE TO WHEAT, 02/20/17) Milk (Verified Allergy, Unknown, COWS MILK-GI UPSET, 02/20/17) NO KNOWN DRUG ALLERGIES (Verified Allergy, Unknown, ., 02/20/17) Current Medications Reported Home Medications Medications Dose Route/Sig Max Daily Dose Days Date Category Protonix (Pantoprazole Sodium) 40 Mg Tab 40 Mg PO BID 02/25/17 Reported Synthroid (Levothyroxine Sodium) 125 Mcg Tab 125 Mcg PO QAM 02/20/17 Reported Tylenol (Acetaminophen) 325 Mg Tab 650 Mg PO PRN 05/07/16 Reported Ativan (Lorazepam) 0.5 Mg Tab 0.5 Mg PO TID PRN 05/07/16 Reported Vitamin D3 (Cholecalciferol) 2,000 Unit Cap 1 Cap PO NOON 05/07/16 Reported Probiotic (Probiotic Product) 1 Cap Cap 2 Tab PO HS 05/07/16 Reported Benadryl Allergy (Diphenhydramine Hcl) 25 Mg Cap 1 Cap PO HS 05/07/16 Reported Zantac (Ranitidine HCl) 150 Mg Tab 150 Mg PO HS 09/10/13 Reported Multivitamin (Multivitamins) Tab 1 Tab PO NOON 08/19/09 Reported Vital Signs Weight (Kilograms): 63.64 Height (Feet): 5 Height (Inches): 7 Physical Exam General Appearance: WD/WN, no apparent distress Respiratory/Chest: Auscultation: breath sounds normal Cardiovascular: Heart Auscultation: RRR Abdomen: Bowel Sounds: normal Inspection & Palpation: soft, non-distended, no tenderness, guarding & rebound Assessment and Plan Assessment: 41 yo CF who presents for EGD secondary to GERD. Plan: Proceed with EGD.
--- NOTE | 2017-02-25 09:26 | Discharge Instructions ---
Endoscopy Patient Instructions Date / Procedure(s) Performed Feb 25, 2017. EGD Allergy Information Coded Allergies: Gluten (Verified Allergy, Unknown, INTOLERANCE TO WHEAT, 02/20/17) Milk (Verified Allergy, Unknown, COWS MILK-GI UPSET, 02/20/17) NO KNOWN DRUG ALLERGIES (Verified Allergy, Unknown, ., 02/20/17) Discharge Date / Findings Feb 25, 2017. Gastric polyps s/p biopsies Medication Instructions OK to resume all medications today as prescribed Reported Home Medications Medications Dose Route/Sig Max Daily Dose Days Date Category Protonix (Pantoprazole Sodium) 40 Mg Tab 40 Mg PO BID 02/25/17 Reported Synthroid (Levothyroxine Sodium) 125 Mcg Tab 125 Mcg PO QAM 02/20/17 Reported Tylenol (Acetaminophen) 325 Mg Tab 650 Mg PO PRN 05/07/16 Reported Ativan (Lorazepam) 0.5 Mg Tab 0.5 Mg PO TID PRN 05/07/16 Reported Vitamin D3 (Cholecalciferol) 2,000 Unit Cap 1 Cap PO NOON 05/07/16 Reported Probiotic (Probiotic Product) 1 Cap Cap 2 Tab PO HS 05/07/16 Reported Benadryl Allergy (Diphenhydramine Hcl) 25 Mg Cap 1 Cap PO HS 05/07/16 Reported Zantac (Ranitidine HCl) 150 Mg Tab 150 Mg PO HS 09/10/13 Reported Multivitamin (Multivitamins) Tab 1 Tab PO NOON 08/19/09 Reported Provider Instructions Activity Restrictions - No exercising or heavy lifting for 24 hours. - Do not drink alcohol the day of the procedure. - Do not drive a car or operate machinery until the day after the procedure. - Do not make any important decisions or sign important papers in 24 hours after the procedure. Following Day: - Return to full activity which may include returning to work/school. Diet Start your diet with liquids and light foods (jello, soup, juice, toast). Then eat your usual diet if not nauseated. Treatment For Common After Affects For mild abdominal pain, bloating, or excessive gas: - Rest - Eat lightly - Lie on right side Follow-Up Information Follow-up with [facility] as scheduled Anesthesia Information What You Should Know You have had a procedure that required some medicine to reduce anxiety and discomfort. This treatment is called moderate sedation. After receiving the treatment, you may be sleepy, but you will be able to breathe on your own. The effects of the treatment may last for several hours. Follow these instructions along with Activity/Diet recommendations noted above: * Do NOT do anything where dizziness or clumsiness would be dangerous. * Rest quietly at home today, then you can be up and about tomorrow. * Have a responsible person stay with you the rest of today. * You may have had an I.V. today. If so, you may take the dressing off later today. Recommendations Call your doctor if: * Trouble breathing * Continuous vomiting for more than 24 hours * Temperature above 101 degrees * Severe abdominal pain or bloating * Pain not relieved by pain medicine ordered * There is increased drainage or redness from any incision * A large amount of rectal bleeding greater than 2-3 tablespoons. (If you had a polyp/s removed or have hemorrhoids, a small amount of blood - from the rectum is to be expected.) * You have any unanswered questions or concerns. IN THE EVENT OF A SERIOUS EMERGENCY, GO TO THE NEAREST EMERGENCY ROOM Your discharge instructions were prepared by provider Oscar Castro. Patient Instructions Signature Page Shanika Rosales Patient (or Guardian) Signature/Date: I have read and understand the instructions given to me by my caregivers. Caregiver/RN/Doctor Signature/Date: The above-named patient and/or guardian has received patient instructions on this date. + Original Patient Signature Page (only) stays with chart. Please make copy for patient.
--- NOTE | 2017-02-25 09:36 | Anesthesiology Progress Note ---
Anesthesia Post Op Note Date & Time Feb 25, 2017 at 09:36 Vital Signs Pain Intensity: 0 Vital Signs Past 12 Hours Date Time Temp Pulse Resp B/P (MAP) Pulse Ox O2 Delivery O2 Flow Rate FiO2 02/25/17 08:42 36.8 73 16 123/72 (89) 100 Room Air Notes Mental Status: alert / awake / arousable, participated in evaluation Pt Amnestic to Procedure: Yes Nausea / Vomiting: adequately controlled Pain: adequately controlled Airway Patency, RR, SpO2: stable & adequate BP & HR: stable & adequate Hydration State: stable & adequate Anesthetic Complications: no major complications apparent
[2017-02-25 10:07] VITALS: BP 105/69; PULSE 63; O2SAT 100
--- NOTE | 2017-02-25 10:30 | GI REPORT ---
Procedure Date: 02/25/2017 9:00 AM Procedure: Upper GI endoscopy Indications: Gastro-esophageal reflux disease Medicines: Monitored Anesthesia Care Complications: No immediate complications. Estimated Blood Loss: Estimated blood loss: none. Procedure: Pre-Anesthesia Assessment: - Prior to the procedure, a History and Physical was performed, and patient medications and allergies were reviewed. The patient's tolerance of previous anesthesia was also reviewed. The risks and benefits of the procedure and the sedation options and risks were discussed with the patient. All questions were answered, and informed consent was obtained. Prior Anticoagulants: The patient has taken no previous anticoagulant or antiplatelet agents. ASA Grade Assessment: II - A patient with mild systemic disease. After reviewing the risks and benefits, the patient was deemed in satisfactory condition to undergo the procedure. After obtaining informed consent, the endoscope was passed under direct vision. Throughout the procedure, the patient's blood pressure, pulse, and oxygen saturations were monitored continuously. The scope was introduced through the mouth, and advanced to the second part of duodenum. The upper GI endoscopy was accomplished without difficulty. The patient tolerated the procedure well. Findings: The esophagus was normal. Multiple 5 to 15 mm sessile polyps with no bleeding and no stigmata of recent bleeding were found on the greater curvature of the stomach. Biopsies were taken with a cold forceps for histology. The examined duodenum was normal. Impression: - Normal esophagus. - Multiple gastric polyps. Biopsied. - Normal examined duodenum. Recommendation: - Resume previous diet. - Continue present medications. - Await pathology results. - Return to primary care physician as previously scheduled. Oscar Castro DO 02/25/2017 9:33:12 AM This report has been signed electronically. Note Initiated On: 02/25/2017 9:00 AM I attest to the content of the Intraoperative Record and orders documented therein, exceptions below
== END | disposition home or self-care (01) ==
LOC: C.GI 08:22
PROVIDERS: ATTEND Internal Medicine
DX: D13.1 Benign neoplasm of stomach (principal); K21.9 Gastro-esophageal reflux disease without esophagitis; Z80.0 Family history of malignant neoplasm of digestive organs; Z79.899 Other long term (current) drug therapy

== ENCOUNTER → 2017-03-12 | Outpatient (CLI) | payer BC ==
[~2017-03-12] MED LIST changes: -ATROPINE SULFATE 0.1 MG/ML 5ML SYR IV PRN; -EpHEDrine SULFATE INJ 50 MG/ML AMP IV PRN; -FENTANYL CITRATE INJ 50 MCG/1 ML 2 ML VIAL ONE; -LIDOCAINE HCL 2% 2 ML VIAL (20MG/ML) ONE; -OMEP40CA41 PO; -PROPOFOL IV EMULSION 10 MG/ML 20 ML VIAL IV ONE; -SODIUM CHLORIDE 0.9% 500ML 500 ML IV ONE
--- NOTE | 2017-03-12 08:45 | DIAGNOSTIC IMAGING REPORT ---
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 FINDINGS: Status post thyroidectomy. No soft tissue nodules or lymph nodes at the thyroid bed. IMPRESSION: Status post thyroidectomy. No soft tissue nodules at the thyroid bed. Electronically signed by: Raf Lala M.D. 03/12/2017 8:43 AM Dictated Date/Time: 03/12/2017 8:31 AM
== END | disposition home or self-care (01) ==
LOC: C.ULTR 08:06
PROVIDERS: ATTEND Internal Medicine Endocrinology, Diabetes & Metabolism
DX: C73 Malignant neoplasm of thyroid gland (principal)

== ENCOUNTER → 2017-05-09 | Outpatient (CLI) | payer OTHER ==
[2017-05-09 15:53] LABS: BASO % 0.2 %; BASO ABS # 0.01 K/uL (0-0.2); EOS % 0.8 %; EOS ABS # 0.04 K/uL (0-0.5); HEMATOCRIT 35.8 % (37-47); HEMOGLOBIN 12.3 g/dL (12.0-16.0); IG# 0.02 K/uL (0.00-0.02); LYMPH % 36.6 %; LYMPH ABS # 1.93 K/uL (1.2-3.4); MEAN CELL VOLUME 94.5 fL (80-100); MEAN CORPUSCULAR HEMOGLOBIN 32.5 pg (25-34); MEAN CORPUSCULAR HGB CONC 34.4 g/dl (32-36); MEAN PLATELET VOLUME 10.1 fL (7.4-10.4); MONO % 8.5 %; MONO ABS # 0.45 K/uL (0.11-0.59); NEUT % 53.5 %; NEUT ABS # 2.82 K/uL (1.4-6.5); PLATELET COUNT 183 K/uL (130-400); RED CELL DISTRIBUTION WIDTH CV 12.4 % (11.5-14.5); RED CELL DISTRIBUTION WIDTH SD 41.8 fL (36.4-46.3); WHITE BLOOD COUNT 5.27 K/uL (4.8-10.8)
[2017-05-09 16:16] LABS: ALBUMIN 3.8 gm/dl (3.4-5.0); ALT/SGPT 29 U/L (12-78); AST/SGOT 15 U/L (15-37); BLOOD UREA NITROGEN 8 mg/dl (7-18); CARBON DIOXIDE 31 mmol/L (21-32); CREATININE 0.89 mg/dl (0.60-1.20); GLUCOSE 99 mg/dl (70-99); POTASSIUM 3.6 mmol/L (3.5-5.1); SODIUM 140 mmol/L (136-145)
[2017-05-09 16:18] LABS: ALKALINE PHOSPHATASE 51 U/L (45-117); TOTAL PROTEIN 7.6 gm/dl (6.4-8.2)
== END | disposition home or self-care (01) ==
LOC: C.LAB1850 14:13
PROVIDERS: ATTEND Internal Medicine
DX: R06.09 Other forms of dyspnea (principal)

== ENCOUNTER → 2017-06-06 | Outpatient (CLI) | payer OTHER ==
[~2017-06-06] MED LIST changes: +ACET-1693 PO; -ACET325T96 PO; +RANI150T85 PO; -ZNTT/150 PO
--- NOTE | 2017-06-06 13:27 | DIAGNOSTIC IMAGING REPORT ---
CHEST 2 VIEWS ROUTINE CLINICAL HISTORY: J45.998 Mild asthma, unspecified whether complicated, unspecifie COMPARISON STUDY: 04/25/2016 FINDINGS: The bones soft tissues and hemidiaphragms are normal. The cardiomediastinal silhouette is normal. Minimal parenchymal infiltrative change left base. The pulmonary vasculature is normal. IMPRESSION: Minimal parenchymal infiltrative change left base. Otherwise negative study. The above report was generated using voice recognition software. It may contain grammatical, syntax or spelling errors. Electronically signed by: Shiva Martino M.D. 06/06/2017 1:25 PM Dictated Date/Time: 06/06/2017 1:25 PM
--- NOTE | 2017-06-06 14:10 | DIAGNOSTIC IMAGING REPORT ---
LUNG IMAGING VQ CLINICAL HISTORY: Chest pain. Dyspnea. COMPARISON: None TECHNIQUE: For the ventilation portion of this exam, 32.2 mCi of DTPA was inhaled at 1:25 PM. Immediately following inhalation, imaging of the chest was carried out in the anterior, posterior, left lateral, right lateral, LPO, RPO, GHANAIAN and HINOJOSA projections. For the perfusion portion of exam, 5 mCi of technetium 99m MAA was injected IV at 1:50 PM. Immediately following injection, imaging of the chest was carried out in the same projections. FINDINGS: Uniform activity throughout both hemithoraces on both ventilation as well as perfusion components of the study. No significant central air trapping. No perfusion or ventilation defects. No evidence for a ventilation/perfusion mismatch. IMPRESSION: Normal exam The above report was generated using voice recognition software. It may contain grammatical, syntax or spelling errors. Electronically signed by: Shiva Martino M.D. 06/06/2017 2:08 PM Dictated Date/Time: 06/06/2017 2:07 PM
== END | disposition home or self-care (01) ==
LOC: C.NUCL 12:39
PROVIDERS: ATTEND Internal Medicine Pulmonary Disease
DX: K59.00 Constipation, unspecified (principal); J45.998 Other asthma; R06.02 Shortness of breath; R05 Cough

== ENCOUNTER → 2017-06-27 | Outpatient (CLI) | payer OTHER | END | disposition home or self-care (01) | LOC: C.LABSPEC 18:04 | PROVIDERS: ATTEND Nurse Practitioner | DX: J02.9 Acute pharyngitis, unspecified (principal) ==

== ENCOUNTER → 2017-08-15 | Day surgery (SDC) | payer OTHER ==
[2017-07-16 12:48] VITALS: Ht 170.2 cm; Wt 65.9 kg
[~2017-08-15] VITALS: Ht 170.2 cm; Wt 65.9 kg
[~2017-08-15] MED LIST changes: +ACETAMINOPHEN 325 MG TAB PO PRN; +ATROPINE SULFATE 0.1 MG/ML 5ML SYR IV PRN; +DEXAMETHASONE SOD INJ 4 MG/ML VIAL ONE; +EpHEDrine SULFATE INJ 50 MG/ML AMP IV PRN; +FENTANYL CITRATE INJ 50 MCG/1 ML 2 ML VIAL IV PRN; +FENTANYL CITRATE INJ 50 MCG/1 ML 2 ML VIAL ONE; +HYDROmorphone INJ 2 MG/ML SYR/VIAL IV PRN; +IBUPROFEN 600 MG TAB PO PRN; +KETOROLAC TROMETHAMINE 30 MG/ML VIAL IV. PRN; +KETOROLAC TROMETHAMINE 30 MG/ML VIAL ONE; +LACTATED RINGER'S 1000ML 1,000 ML IV SCH; +LIDOCAINE HCL 2% 2 ML VIAL (20MG/ML) ONE; +MIDAZOLAM HCL 1 MG/ML 2ML VIAL ONE; +ONDANSETRON INJ 2 MG/ML 2 ML VIAL IV PRN; +ONDANSETRON INJ 2 MG/ML 2 ML VIAL ONE; +OXYCODONE/ACETAMINOPHEN 5-325 TAB PO PRN; -PANT40TA PO; +PROMETHAZINE HCL INJ 25 MG in SODIUM CHLORIDE 0.9% 50ML 50 ML IV PRN; +PROPOFOL IV EMULSION 10 MG/ML 20 ML VIAL IV ONE; +SODIUM CHLORIDE 0.9% 1000ML 1,000 ML IV SCH
--- NOTE | 2017-08-15 07:30 | [facility] Post Operative Brief Note ---
Immediate Operative Summary Operative Date Aug 15, 2017. Pre-Operative Diagnosis Abnormal uterine bleeding Post-Operative Diagnosis Same as pre-op Procedure(s) Performed Dilatation And Curettage, Hysteroscopy, Polypectomy Surgeon Mast Maker Surgeon(s) None Estimated Blood Loss 5ML Findings Consistent with Post-Op Diagnosis Fluids (cc crystalloids) 650 Specimens A.Endometrial curettings and polyp Drains None Anesthesia Type General Complication(s) none Disposition Accompanied Pt To Recovery: yes Disposition: Recovery Room / PACU
[2017-08-15 08:16] VITALS: TEMP 36.3
--- NOTE | 2017-08-15 08:19 | Discharge Instructions ---
Discharge Instructions Date of Service Aug 15, 2017. Visit Reason for Visit: Abnormal Uterine Bleeding Discharge Discharge Diagnosis / Problem: endometrial polyp removal Discharge Goals Goal(s): Diagnostic testing, Therapeutic intervention Activity Recommendations Activity Limitations: per Instructions/Follow-up section Anesthesia . Post Anesthesia Instructions: If you have had General Anesthesia or IV Sedation: * Do not drive today. * Resume driving when surgeon permits. * Do not make important decisions or sign legal documents today. * Call surgeon for: 1. Temperature elevations greater than 101 degrees F. 2. Uncontrollable pain. 3. Excessive bleeding. 4. Persistent nausea and vomiting. 5. Medication intolerance (nausea, vomiting or rash). * For nausea and vomiting use only clear liquids such as: tea, soda, bouillon until nausea subsides, then gradually increase diet as tolerated. * If you have any concerns or questions, call your surgeon's office. If physician is unavailable and it is an emergency, call 911 or go to the nearest emergency room. . Instructions / Follow-Up Instructions / Follow-Up ACTIVITY RECOMMENDATIONS: * Avoid tampons, douching, hot tubs, pools, and intercourse until bleeding has stopped. * May shower as usual. * No strenuous activity for 24-48 hours. After 24-48 hours, you may do anything you feel like doing (driving and sports are okay). SPECIAL CARE INSTRUCTIONS: Special Diet: * Mild nausea may occur in the immediate post-operative period. * Take clear liquids such as tea, cola or bouillon until all nausea has subsided; you may then resume your normal diet. Special Care: * Light bleeding and vaginal spotting can last from a few days to 3-4 weeks. Call your doctor if bleeding becomes heavier than the heaviest part of your period. * Check your temperature twice a day for one week. If it goes above 100.4 degrees Fahrenheit (38.0 Celsius), notify your doctor. * Call your doctor's office for an appointment for 6 weeks after your surgery. FOLLOW-UP VISIT: Call your doctor's office for an appointment for 6 weeks after your surgery. Diet Recommendations Recommended Home Diet: resume previous diet Procedures Procedures Performed: Dilatation And Curettage, Hysteroscopy, Polypectomy Pending Studies Studies pending at discharge: no Medical Emergencies . Who to Call and When: Medical Emergencies: If at any time you feel your situation is an emergency, please call 911 immediately. . Non-Emergent Contact Non-Emergency issues call your: [employer] . . "Provider Documentation" section prepared by Sinia Ravi .
[2017-08-15 08:43] VITALS: BP 115/75; PULSE 62; O2SAT 100
--- NOTE | 2017-08-15 08:46 | Anesthesia Progress Nt - [facility] ---
Anesthesia Post Op Note Date & Time Aug 15, 2017 at 08:45 Vital Signs Pain Intensity: 5.0 Vital Signs Past 12 Hours Date Time Temp Pulse Resp B/P (MAP) Pulse Ox O2 Delivery O2 Flow Rate FiO2 08/15/17 08:43 62 16 115/75 (88) 100 Room Air 08/15/17 08:16 36.3 69 16 108/72 (84) 100 Room Air 08/15/17 08:10 36.7 100 Room Air 08/15/17 08:05 71 17 103/67 100 Room Air 08/15/17 08:00 70 20 101/69 100 Room Air 08/15/17 07:55 78 16 106/71 100 Mask 7 08/15/17 07:50 70 15 110/69 100 Mask 7 08/15/17 07:45 72 17 111/74 100 Mask 7 08/15/17 07:40 75 13 106/74 100 Mask 7 08/15/17 07:35 76 9 114/70 100 Mask 7 08/15/17 07:34 36.7 72 12 114/70 100 Mask 7 08/15/17 06:39 37.1 82 18 109/78 (88) 99 Room Air Notes Mental Status: alert / awake / arousable, participated in evaluation Pt Amnestic to Procedure: Yes Nausea / Vomiting: adequately controlled Pain: adequately controlled Airway Patency, RR, SpO2: stable & adequate BP & HR: stable & adequate Hydration State: stable & adequate Anesthetic Complications: no major complications apparent
--- NOTE | 2017-08-15 09:03 | OPERATIVE REPORT ---
DATE OF OPERATION: 08/15/2017 PREOPERATIVE DIAGNOSIS: Abnormal uterine bleeding with endometrial polyp on ultrasound. POSTOPERATIVE DIAGNOSIS: Same. PROCEDURE: Hysteroscopy, D and C, and polypectomy. ANESTHESIA: General. BLOOD LOSS: Less than 5 mL. HISTORY OF PRESENT ILLNESS: The patient is a 42-year-old G1, P1-0-0-1 white female who presented with a several month history of irregular spotting. Ultrasound was done to evaluate the endometrial lining. She was noted to have what appeared to be a microcystic endometrial polyp. She is now scheduled for D and C, hysteroscopy, and removal of endometrial polyp. The patient understands the risks of procedure and is willing to proceed. GROSS FINDINGS: The uterus is normal size, mobile, and of normal contour. There are no adnexal masses present. External genitalia are within normal limits. There is a nabothian cyst on the posterior lip of the cervix. Under direct hysteroscopic evaluation, the inside of the endometrial cavity has a normal contour. There is the presence of a polyp coming off of the patient's right uterine sidewall. Otherwise, there were no other abnormalities present. Both tubal os's could be identified and tubal ostia and they were in normal position. DESCRIPTION OF PROCEDURE: After the patient received adequate general anesthetic, she was prepped and draped in usual sterile fashion. After bladder was emptied, a weighted speculum was placed in the vagina and the anterior lip of the cervix was grasped with a single tooth tenaculum. Cervix was then dilated to a #37 Hanks dilator. The hysteroscope was then inserted. Normal saline was used as the expanding medium. Findings were noted as above. A sharp curettage was used as well as polyp forceps to remove the endometrial polyp. Post-polypectomy hysteroscopy revealed there were no retained polyps. The single tooth tenaculum was removed from the cervix. Bleeding at the tenaculum site was controlled with Allis clamps. Normal saline 738 mL used with 5 mL deficit. The patient did well and was in stable condition upon arrival in recovery room. I attest to the content of the Intraoperative Record and any orders documented therein. Any exception s are noted below.
== END | disposition home or self-care (01) ==
LOC: X.SURG 06:19
PROVIDERS: ATTEND Obstetrics & Gynecology
DX: N93.9 Abnormal uterine and vaginal bleeding, unspecified (principal); K21.9 Gastro-esophageal reflux disease without esophagitis; N84.0 Polyp of corpus uteri; R87.810 Cervical high risk human papillomavirus (HPV) DNA test positive; F32.9 Major depressive disorder, single episode, unspecified; D89.2 Hypergammaglobulinemia, unspecified; E20.9 Hypoparathyroidism, unspecified; E03.9 Hypothyroidism, unspecified; K58.9 Irritable bowel syndrome, unspecified; K64.8 Other hemorrhoids; E55.9 Vitamin D deficiency, unspecified; Z85.850 Personal history of malignant neoplasm of thyroid; Z83.79 Family history of other diseases of the digestive system; Z82.49 Family history of ischemic heart disease and other diseases of the circulatory system; Z82.3 Family history of stroke; Z80.3 Family history of malignant neoplasm of breast; Z80.0 Family history of malignant neoplasm of digestive organs

== ENCOUNTER → 2017-08-28 | Outpatient (CLI) | payer OTHER ==
[~2017-08-28] MED LIST changes: -ACETAMINOPHEN 325 MG TAB PO PRN; -ATROPINE SULFATE 0.1 MG/ML 5ML SYR IV PRN; -DEXAMETHASONE SOD INJ 4 MG/ML VIAL ONE; -EpHEDrine SULFATE INJ 50 MG/ML AMP IV PRN; -FENTANYL CITRATE INJ 50 MCG/1 ML 2 ML VIAL IV PRN; -FENTANYL CITRATE INJ 50 MCG/1 ML 2 ML VIAL ONE; -HYDROmorphone INJ 2 MG/ML SYR/VIAL IV PRN; -IBUPROFEN 600 MG TAB PO PRN; -KETOROLAC TROMETHAMINE 30 MG/ML VIAL IV. PRN; -KETOROLAC TROMETHAMINE 30 MG/ML VIAL ONE; -LACTATED RINGER'S 1000ML 1,000 ML IV SCH; -LIDOCAINE HCL 2% 2 ML VIAL (20MG/ML) ONE; -MIDAZOLAM HCL 1 MG/ML 2ML VIAL ONE; -ONDANSETRON INJ 2 MG/ML 2 ML VIAL IV PRN; -ONDANSETRON INJ 2 MG/ML 2 ML VIAL ONE; -OXYCODONE/ACETAMINOPHEN 5-325 TAB PO PRN; -PROMETHAZINE HCL INJ 25 MG in SODIUM CHLORIDE 0.9% 50ML 50 ML IV PRN; -PROPOFOL IV EMULSION 10 MG/ML 20 ML VIAL IV ONE; -SODIUM CHLORIDE 0.9% 1000ML 1,000 ML IV SCH
[2017-08-28 16:03] LABS: CALCIUM 8.4 mg/dl (8.5-10.1)
== END | disposition home or self-care (01) ==
LOC: C.LAB1850 14:40
PROVIDERS: ATTEND Internal Medicine Endocrinology, Diabetes & Metabolism
DX: C73 Malignant neoplasm of thyroid gland (principal); E55.9 Vitamin D deficiency, unspecified; E20.9 Hypoparathyroidism, unspecified

== ENCOUNTER → 2017-09-10 | Outpatient (CLI) | payer OTHER ==
[2017-09-10 14:39] LABS: CALCIUM 8.5 mg/dl (8.5-10.1)
[2017-09-10 14:40] LABS: ALBUMIN 3.7 gm/dl (3.4-5.0)
== END | disposition home or self-care (01) ==
LOC: C.LABBFT 08:03
PROVIDERS: ATTEND Internal Medicine Endocrinology, Diabetes & Metabolism
DX: E20.9 Hypoparathyroidism, unspecified (principal)

== ENCOUNTER → 2017-11-19 | Outpatient (CLI) | payer OTHER ==
[~2017-11-19] MED LIST changes: +OPTIRAY 320 IV PRN
[2017-11-19 10:49] LABS: CALCIUM 8.7 mg/dl (8.5-10.1)
--- NOTE | 2017-11-19 12:01 | DIAGNOSTIC IMAGING REPORT ---
CT OF THE ABDOMEN AND PELVIS WITH CONTRAST CLINICAL HISTORY: Left lower quadrant abdominal pain. COMPARISON STUDY: CT of the abdomen and pelvis September 09, 2014 and abdominal and pelvic ultrasound November 04, 2017. TECHNIQUE: Following IV administration of 119 mL of Optiray-320, axial images of the abdomen and pelvis were obtained from the lung bases to the proximal femurs. Images were reviewed in the axial, sagittal, and coronal planes. IV contrast was administered without complication. A dose lowering technique was utilized adhering to the principles of ALARA. Oral contrast was administered. CT DOSE: 311.61 mGy.cm FINDINGS: Lung bases are clear. The liver, spleen, adrenal glands, right kidney and pancreas are normal. Numerous cysts within the left kidney are noted. Several lesions within the left kidney are too small to characterize but similar findings were shown on exam of September 09, 2014. 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 No peripancreatic or pericholecystic infiltration is present. Caliber and wall thickness of small and large bowel are normal. The appendix is normal. A 2 cm dominant follicle within the left ovary is noted. The ovaries are not significantly enlarged. There are no suspicious osseous lesions. IMPRESSION: 1. No acute process within the abdomen or pelvis. 2. Normal appendix. No bowel obstruction. 3. Numerous left renal cysts. Electronically signed by: Carlos Prater M.D. 11/19/2017 12:00 PM Dictated Date/Time: 11/19/2017 11:53 AM
== END | disposition home or self-care (01) ==
LOC: C.CTS 09:06
PROVIDERS: ATTEND Internal Medicine
DX: C73 Malignant neoplasm of thyroid gland (principal); E20.9 Hypoparathyroidism, unspecified; N28.1 Cyst of kidney, acquired; R93.8 Abnormal findings on diagnostic imaging of other specified body structures; R10.32 Left lower quadrant pain

== ENCOUNTER → 2017-11-22 | Outpatient (CLI) | payer OTHER ==
[~2017-11-22] MED LIST changes: -OPTIRAY 320 IV PRN
--- NOTE | 2017-11-22 15:41 | MAMMOGRAPHY REPORT ---
BILATERAL DIGITAL SCREENING MAMMOGRAM TOMOSYNTHESIS WITH CAD: 11/22/2017 CLINICAL HISTORY: Routine screening. Patient has no complaints. TECHNIQUE: The study was acquired using full field digital technology and interpreted from soft copy. Breast tomosynthesis in addition to standard 2D mammography was performed. Current study was also ev aluated with a Computer Aided Detection (CAD) system. COMPARISON: Comparison is made to exams dated: 10/12/2016 mammogram, 08/23/2015 mammogram, 08/18/2014 m ammogram, and 08/18/2014 ultrasound - [facility]. BREAST COMPOSITION: The tissue of both breasts is extremely dense, which lowers the sensitivity of ma mmography. FINDINGS: No suspicious masses, calcifications, or areas of architectural distortion are noted in either breast . There has been no significant interval change compared to prior exams. IMPRESSION: ACR BI-RADS CATEGORY 1: NEGATIVE There is no mammographic evidence of malignancy. A 1 year screening mammogram is recommended.( 019) The patient will receive written notification of the results. Some breast cancers are not detected with mammography. A negative mammographic report should not vida y biopsy if a clinically suggestive mass is present. Bren Seth M.D. ah/:11/22/2017 14:27:06 Insurance Adjustor: RT Jessie(R)(M), [facility] letter sent: Normal 1/2 BI-RADS Code: ACR BI-RADS Category 1: Negative
== END | disposition home or self-care (01) ==
LOC: C.MAMM 13:41
PROVIDERS: ATTEND Obstetrics & Gynecology
DX: Z12.31 Encounter for screening mammogram for malignant neoplasm of breast (principal)